=== PATIENT | male | born 2000 | race Caucasian/White ===

== ENCOUNTER 2020-10-20 15:23 | Outpatient (CLI) | payer BC ==
--- NOTE | 2020-10-20 15:48 | RAD ---
EXAM: XR Thoracic Spine 2 View PROVIDED CLINICAL HISTORY: Lower thoracic pain. COMPARISON: None FINDINGS: Again noted is a minimal wedge-shaped compression fracture of the T9 vertebral body. The remaining ve rtebral body heights as well as intervertebral disc spaces are within normal limits. No subluxation is seen. No interval change from study in 2019. IMPRESSION: 1. Stable minimal degree of height loss involving wedge-shaped superior endplate compression fracture of T9 vertebral body. 2. Remaining vertebral body heights are within normal limits, and no additional fracture or subluxati on is seen.
--- NOTE | 2020-10-20 15:49 | RAD ---
Lumbar spine 2 views: 10/20/2020 COMPARISON: None HISTORY: Low thoracic pain FINDINGS: There is a round calcific density adjacent to the left L1 transverse process measuring 9 mm , which may signify a congenital anomaly. The lumbar pedicles appear intact on frontal imaging. The lateral exam demonstrates normal vertebral body height and alignment. IMPRESSION: No acute findings.
== END 2020-10-20 15:24 | disposition home or self-care (01) ==
LOC: MADRAD 15:23
PROVIDERS: ATTEND Family Medicine
DX: M54.6 Pain in thoracic spine (principal)
CPT/HCPCS: 72070; 72100

== ENCOUNTER 2021-05-25 22:04 | Emergency (ER) | payer BC ==
[2021-05-26 20:33] LABS: SARS-CoV-2 PCR by NAA Not Detected (NotDetected)
== END 2021-05-26 | disposition home or self-care (01) ==
LOC: MADERS 22:04
DX: Z20.822 Contact with and (suspected) exposure to COVID-19 (principal); F17.210 Nicotine dependence, cigarettes, uncomplicated
CPT/HCPCS: 99283; U0003; U0005